=== PATIENT | female | born 1990 | race Caucasian/White ===

== ENCOUNTER 2017-10-01 22:14 | Emergency (ER) | payer BC, MEDICAID ==
--- NOTE | 2017-10-01 23:13 | EDM.PDOC ---
ED HPI GENERAL MEDICAL PROBLEM - General Source of Information: Reports: Patient History Limitations: Reports: No Limitations - History of Present Illness Onset: Today, Other ( started this afternoon. ) Duration: Hour(s): Location: Reports: Abdomen Associated Symptoms: Reports: Nausea/Vomiting, Other (pt has had nausea with the . ) Right Lower Abdomen Pain Score (Numeric/FACES): 7 <Naida Ponce - Last Filed: 10/02/17 07:17> <Dk Rene - Last Filed: 10/02/17 09:49> - General Chief Complaint: LEGAL COLLECTOR Problem Stated Complaint: 4 WKS SHARP STABBING PAIN NAUSEA Time Seen by Provider: 10/01/17 23:11 - History of Present Illness INITIAL COMMENTS - FREE TEXT/NARRATIVE: pt is 4 weeks . She now has severe pain in the rt lower abdoman very low. (Naida Ponce) - Related Data Allergies Allergy/AdvReac Type Severity Reaction Status Date / Time No Known Allergies Allergy Verified 10/01/17 22:49 Home Meds: Home Meds Calcium Carbonate [Calcium] 500 mg PO DAILY 10/01/17 [History] Citalopram [Citalopram HBr] 20 mg PO DAILY 10/01/17 [History] Multivitamin [Multi-Day Vitamins] 1 tab PO DAILY 10/01/17 [History] Past Medical History - Past Health History Medical/Surgical History: Denies Medical/Surgical History LEGAL COLLECTOR History: Reports: Other LEGAL COLLECTOR History: Patient has a 4-1/2 month old daughter at home. She is breast-feeding Psychiatric History: Reports: Depression - Infectious Disease History Infectious Disease History: Reports: Chicken Pox <Naida Ponce - Last Filed: 10/02/17 07:17> Social & Family History - Tobacco Use Smoking Status *Q: Never Smoker Second Hand Smoke Exposure: No - Caffeine Use Caffeine Use: Reports: Coffee, Tea - Alcohol Use Days Per Week of Alcohol Use: 0 - Recreational Drug Use Recreational Drug Use: No <Naida Ponce - Last Filed: 10/02/17 07:17> ED ROS GENERAL - Review of Systems Review Of Systems: See Below Constitutional: Reports: No Symptoms HEENT: Reports: No Symptoms Respiratory: Reports: No Symptoms Cardiovascular: Reports: No Symptoms Endocrine: Reports: No Symptoms GI/Abdominal: Reports: Abdominal Pain, Nausea, Other (pt is rating her pain at a 7. ) : Reports: No Symptoms Musculoskeletal: Reports: No Symptoms Skin: Reports: No Symptoms <Naida Ponce - Last Filed: 10/02/17 07:17> ED EXAM - Physical Exam Exam: See Below Exam Limited By: No Limitations General Appearance: Alert, Moderate Distress Ears: Normal TMs Nose: Normal Inspection Throat/Mouth: Normal Inspection Head: Atraumatic Neck: Normal Inspection Respiratory/Chest: No Respiratory Distress Cardiovascular: Regular Rate, Rhythm GI/Abdominal Exam: Tender, Other (pt has rt lower abdomanal tenderness which is very low in the pelvis. ) <Naida Ponce - Last Filed: 10/02/17 07:17> <Dk Rene - Last Filed: 10/02/17 09:49> - Physical Exam Text/Narrative:: pt is 4 weeks and she arrived with rt lower abdomanal pain. She had a quantative HCG which is much lower than it should be at 4 weeks. She has been uncomfortable all day today. She has not had vag spotting or bleeding. ( Naida Ponce) Course <Naida Ponce - Last Filed: 10/02/17 07:17> <Dk Rene - Last Filed: 10/02/17 09:49> - Vital Signs Last Recorded V/S: Last Vital Signs Temp 96.8 F 10/02/17 06:09 Pulse 78 10/02/17 06:09 Resp 16 10/02/17 06:09 BP 110/53 L 10/02/17 06:09 Pulse Ox 98 10/02/17 06:09 - Orders/Labs/Meds Orders: Active Orders 24 hr Category Date Time Status OB 1st Tri Sgl 1st Gest [US] Stat Exams 10/02/17 23:09 Taken OB Transvaginal [US] Stat Exams 10/02/17 00:57 Taken OB Transvaginal [US] Stat Exams 10/02/17 01:37 Taken UA W/MICROSCOPIC [URIN] Urgent Lab 10/01/17 23:11 Ordered Saline Lock Insert [OM.PC] Routine Oth 10/02/17 01:40 Ordered Labs: Laboratory Tests 08/19/18 08/19/18 08/19/18 Range/Units 23:11 23:15 23:15 WBC 11.9 H (4.5-11.0) K/uL RBC 4.25 (3.30-5.50) M/uL Hgb 12.2 (12.0-15.0) g/dL Hct 37.0 (36.0-48.0) % MCV 87 (80-98) fL MCH 29 (27-31) pg MCHC 33 (32-36) % Plt Count 181 (150-400) K/uL Neut % (Auto) 76 H (36-66) % Lymph % (Auto) 18 L (24-44) % [place] % (Auto) 4 (2-6) % Eos % (Auto) 1 L (2-4) % Baso % (Auto) 0 (0-1) % Sodium 135 L (140-148) mmol/L Potassium 3.8 (3.6-5.2) mmol/L Chloride 101 (100-108) mmol/L Carbon Dioxide 27 (21-32) mmol/L Anion Gap 10.8 (5.0-14.0) mmol/L BUN 10 (7-18) mg/dL Creatinine 0.7 (0.6-1.0) mg/dL Est Cr Clr Drug Dosing 109.59 mL/min Estimated GFR (MDRD) > 60 (>60) Glucose 108 H (74-106) mg/dL Calcium 8.8 (8.5-10.1) mg/dL Total Bilirubin 0.3 (0.2-1.0) mg/dL AST 14 L (15-37) U/L ALT 18 (12-78) U/L Alkaline Phosphatase 41 L (46-116) U/L Total Protein 6.7 (6.4-8.2) g/dL Albumin 3.5 (3.4-5.0) g/dL Globulin 3.2 (2.3-3.5) g/dL Albumin/Globulin Ratio 1.1 L (1.2-2.2) HCG, Quant (0-6) mIU/mL Urine Color Yellow Urine Appearance Clear Urine pH 8.0 (4.5-8.0) Ur Specific [place] 1.015 (1.008-1.030) Urine Protein Negative (NEGATIVE) mg/dL Urine Glucose (UA) Normal (NEGATIVE) mg/dL Urine Ketones Negative (NEGATIVE) mg/dL Urine Occult Blood Negative (NEGATIVE) Urine Nitrite Negative (NEGATIVE) Urine Bilirubin Negative (NEGATIVE) Urine Urobilinogen Normal (NORMAL) mg/dL Ur Leukocyte Esterase Negative (NEGATIVE) Urine RBC 0-5 (0-5) Urine WBC 0-5 (0-5) Ur Epithelial Cells Few Amorphous Sediment Not seen Urine Bacteria Few Urine Mucus Not seen 10/01/17 10/02/17 Range/Units 23:15 06:10 WBC (4.5-11.0) K/uL RBC (3.30-5.50) M/uL Hgb 12.1 (12.0-15.0) g/dL Hct (36.0-48.0) % MCV (80-98) fL MCH (27-31) pg MCHC (32-36) % Plt Count (150-400) K/uL Neut % (Auto) (36-66) % Lymph % (Auto) (24-44) % [place] % (Auto) (2-6) % Eos % (Auto) (2-4) % Baso % (Auto) (0-1) % Sodium (140-148) mmol/L Potassium (3.6-5.2) mmol/L Chloride (100-108) mmol/L Carbon Dioxide (21-32) mmol/L Anion Gap (5.0-14.0) mmol/L BUN (7-18) mg/dL Creatinine (0.6-1.0) mg/dL Est Cr Clr Drug Dosing mL/min Estimated GFR (MDRD) (>60) Glucose (74-106) mg/dL Calcium (8.5-10.1) mg/dL Total Bilirubin (0.2-1.0) mg/dL AST (15-37) U/L ALT (12-78) U/L Alkaline Phosphatase (46-116) U/L Total Protein (6.4-8.2) g/dL Albumin (3.4-5.0) g/dL Globulin (2.3-3.5) g/dL Albumin/Globulin Ratio (1.2-2.2) HCG, Quant 850 H (0-6) mIU/mL Urine Color Urine Appearance Urine pH (4.5-8.0) Ur Specific [place] (1.008-1.030) Urine Protein (NEGATIVE) mg/dL Urine Glucose (UA) (NEGATIVE) mg/dL Urine Ketones (NEGATIVE) mg/dL Urine Occult Blood (NEGATIVE) Urine Nitrite (NEGATIVE) Urine Bilirubin (NEGATIVE) Urine Urobilinogen (NORMAL) mg/dL Ur Leukocyte Esterase (NEGATIVE) Urine RBC (0-5) Urine WBC (0-5) Ur Epithelial Cells Amorphous Sediment Urine Bacteria Urine Mucus Meds: Medications Discontinued Medications Generic Name Dose Route Start Last Admin Trade Name Freq PRN Reason Stop Dose Admin Hydromorphone HCl 0.5 mg 10/02/17 02:58 10/02/17 03:05 Dilaudid IVPUSH 10/02/17 02:59 0.5 mg ONETIME ONE Administration Hydromorphone HCl 0.5 mg 10/02/17 05:51 10/02/17 06:04 Dilaudid IVPUSH 10/02/17 05:52 0.5 mg ONETIME ONE Administration Sodium Chloride 10 ml 10/02/17 01:40 10/02/17 06:06 Saline Flush FLUSH 10 ml ASDIRECTED PRN Administration Keep Vein Open - Re-Assessments/Exams Free Text/Narrative Re-Assessment/Exam: 10/02/17 01:45 hg was 12. Her quantative hcg was low at 800. Her pain has not increased. Her US was questionable. She does have fluid in the rt pelvis, her tube may be slightly wide. No definite pole inside the uterus. 10/02/17 07:17 pt has continued to have pain during the nite. . The pain has been very definitely oriented to the rt lower pelvis area. (Naida Ponce) 10/02/17 09:10 Repeat ultrasound shows increased intra-abdominal fluid and a likely right adnexal ectopic , also a possibility of an intrauterine process as well. Results were discussed with LEGAL COLLECTOR in [place] where she receives her primary care. They agreed to see her, and she will go directly to the hospital to be seen in 2 hours, copies of the ultrasound and labs were given to the patient. (Dk Rene) Departure <Naida Ponce - Last Filed: 10/02/17 07:17> - Departure Time of Disposition: 09:28 Condition: Good <Dk Rene - Last Filed: 10/02/17 09:49> - Departure Disposition: DC/Tfer to Other 70 Clinical Impression: Ectopic , tubal Qualifiers: Intrauterine status: unspecified Laterality: right Qualified Code(s) : O00.101 - Right tubal without intrauterine - Discharge Information Instructions: Ectopic , [id number] Referrals: Georgina Iqbal MD [Primary Care Provider] - Forms: ED Department Discharge Care Plan Goals: Go directly to [facility] for further evaluation as discussed. You are to be seen by LEGAL COLLECTOR, and it has been asked that you go into the "B" entrance.
[2017-10-02] MEDS: Sodium Chloride 0.9% 10 ML Syringe FLUSH PRN ×3 (02:11→06:06)
[2017-10-02] MEDS ORDERED: HYDROmorphone 0.5 MG/0.5 ML Syringe IVPUSH ONE ×2 (02:58→05:51)
[2017-10-02 06:10] VITALS: BP 110/53
--- NOTE | 2017-10-02 09:02 | US ---
INDICATION: Pelvic fluid, pelvic pain COMPARISON: 10/01/2017 FINDINGS: Uterus is mildly enlarged at 10.9 x 6.5 x 4.5 cm. There is a complex endometrial fluid collection whi ch appears to have increased since prior study. There is generalized endometrial thickening. Right ovary measures 3.2 x 2.1 x 2.1 cm. Adjacent to the right ovary is a complex mass measuring 3.7 x 4.1 x 4.1 cm. There is no distinct gestational sac or pole. There is moderate free pelvic fluid which has increased. There is now some fluid seen within the abdo men near the liver. Impression: Complex fluid-filled mass in the right adnexal region with the moderate free pelvic fluid . This has increased since the earlier scan. Ectopic is not excluded Endometrial thickening and increasing fluid in the endometrial cavity. This may represent decidual re action and possible pseudogestational sac. No pole is identified. Early concomitant intrauterin e with some uterine bleeding is not excluded. ER was notified by phone at the time of this dictation at 08:55
--- NOTE | 2017-10-02 11:46 | US ---
See pelvic ultrasound report
== END 2017-10-02 09:28 | disposition other institution (70) ==
LOC: JP.ED 22:14
DX: O00.101 Right tubal pregnancy without intrauterine pregnancy (principal); Z3A.01 Less than 8 weeks gestation of pregnancy
CPT/HCPCS: 36415; 76801; 76817; 80053; 81001; 84702; 85018; 85025; 96374; 96375; 99284; J1170; J7050

== ENCOUNTER 2021-02-28 16:54 | Inpatient (IN) | payer BC ==
[2021-02-28 17:44] LABS: CORONAVIRUS COVID-19 NAA NEGATIVE (NEGATIVE)
[2021-02-28] MEDS ORDERED: Sodium Chloride 0.9% 10 ML Syringe FLUSH PRN ×2 (18:26→20:13)
[2021-02-28] MEDS ORDERED: ePHEDrine 50 MG/ML SDV IVPUSH PRN (20:13)
[2021-02-28] MEDS ORDERED: diphenhydrAMINE 50 MG/ML SDV IVPUSH PRN ×2 (20:13)
[2021-02-28] MEDS ORDERED: Naloxone 0.4 MG/ML SDV IVPUSH PRN (20:13)
[2021-02-28] MEDS ORDERED: Ropivacaine 200 MG in Premix Bag 1 BAG EPIDUR SCH (20:15)
[2021-02-28] MEDS ORDERED: Lactated Ringers 1,000 ML IV ONE (20:37)
[2021-02-28] MEDS ORDERED: Ropivacaine 100 ML ONE (21:12)
[2021-02-28] MEDS ORDERED: Lactated Ringers 500 ML IV SCH (23:15)
[2021-03-01] MEDS ORDERED: Misoprostol 200 MCG Tab ONE (01:07)
[2021-03-01] MEDS ORDERED: Carboprost Tromethamine 250 MCG/1 ML Amp ONE (01:08)
[2021-03-01] MEDS ORDERED: Methylergonovine 0.2 MG/1 ML Amp ONE (01:08)
[2021-03-01] MEDS ORDERED: Acetaminophen 325 MG Tab PO PRN (01:14)
[2021-03-01] MEDS ORDERED: Oxytocin 10 Units/1 ML SDV IM PRN (01:14)
[2021-03-01] MEDS ORDERED: Ibuprofen 800 MG Tab PO PRN (01:14)
[2021-03-01] MEDS ORDERED: Ibuprofen 200 MG Tab, 24 Tab Bulk Bottle PO PRN (02:17)
[2021-03-01] MEDS ORDERED: Acetaminophen 325 MG Tab, 50 Tab Bulk Bottle PO PRN (02:30)
[2021-03-01] MEDS: Prenatal Multivitamin with Calcium/Folic Acid/Iron Tab PO SCH (09:21)
[2021-03-02 07:33] VITALS: BP 110/67; PULSE 87
[2021-03-02] MEDS: Prenatal Multivitamin with Calcium/Folic Acid/Iron Tab PO SCH (11:26)
== END 2021-03-02 12:20 | disposition home or self-care (01) | DRG 560 ==
LOC: JP.OBCHECK 16:54 → JP.OB 16:57 → JP.OBCHECK 18:35 → OBSVTOIN 03-01 01:01 → JP.MS 03-01 04:00
PROVIDERS: ADMIT Obstetrics & Gynecology; ATTEND Obstetrics & Gynecology
PROC: 3E0R3BZ Introduction of Anesthetic Agent into Spinal Canal, Percutaneous Approach (ICD-10-PCS; principal; 2021-03-01)
PROC: 00HU33Z Insertion of Infusion Device into Spinal Canal, Percutaneous Approach (ICD-10-PCS; principal; 2021-03-01)
PROC: 10E0XZZ Delivery of Products of Conception, External Approach (ICD-10-PCS; principal; 2021-03-01)
PROC: 10907ZC Drainage of Amniotic Fluid, Therapeutic from Products of Conception, Via Natural or Artificial Opening (ICD-10-PCS; principal; 2021-03-01)
DX: O77.0 Labor and delivery complicated by meconium in amniotic fluid (principal); Z3A.39 39 weeks gestation of pregnancy; Z37.0 Single live birth; O69.81X0 Labor and delivery complicated by cord around neck, without compression, not applicable or unspecified; Z20.822 Contact with and (suspected) exposure to COVID-19
CPT/HCPCS: 0241U; 36415; 51702; 81001; 82947; 85025; 85027; 86850; 86900; 86901; 99211; A9270-GY; J2590; J2795; J7120